=== PATIENT | female | born 1995 | race Caucasian/White ===

== ENCOUNTER 2021-11-26 13:38 | Emergency (ER) | payer MEDICAID ==
[~2021-11-26] VITALS: Ht 172.7 cm; Wt 63.6 kg
[2021-11-26 14:01] VITALS: BP 115/76
[2021-11-26] MEDS ORDERED: CITA20TA28 PO (14:35)
[2021-11-26] MEDS ORDERED: GABA300C PO (14:35)
== END 2021-11-26 14:51 | disposition home or self-care (01) ==
LOC: ER 13:40
DX: F32.9 Major depressive disorder, single episode, unspecified (principal); R56.9 Unspecified convulsions; Z76.0 Encounter for issue of repeat prescription
CPT/HCPCS: 99281

== ENCOUNTER 2021-12-15 17:23 | Emergency (ER) | payer MEDICAID ==
[~2021-12-15] VITALS: Ht 172.7 cm; Wt 63.6 kg
[~2021-12-15 17:23] MED LIST: CITA20TA28 PO; GABA300C PO
[2021-12-15 18:03] VITALS: BP 137/88
== END 2021-12-15 23:42 | disposition left against medical advice (07) ==
LOC: ER 17:23
DX: J02.9 Acute pharyngitis, unspecified (principal); Z53.21 Procedure and treatment not carried out due to patient leaving prior to being seen by health care provider

== ENCOUNTER 2021-12-26 13:21 | Emergency (ER) | payer MEDICAID ==
[~2021-12-26] VITALS: Ht 172.7 cm; Wt 63.6 kg
[2021-12-26 13:23] VITALS: BP 116/79
[2021-12-26] MEDS ORDERED: ALPR-624 PO (15:17)
[2021-12-26] MEDS ORDERED: CITA20TA19 PO (15:17)
[2021-12-26] MEDS ORDERED: GABA300C PO (15:17)
== END 2021-12-26 15:28 | disposition home or self-care (01) ==
LOC: ER 13:21
DX: F41.9 Anxiety disorder, unspecified (principal); G60.9 Hereditary and idiopathic neuropathy, unspecified; L40.50 Arthropathic psoriasis, unspecified; Z76.0 Encounter for issue of repeat prescription; Z79.899 Other long term (current) drug therapy; Z88.8 Allergy status to other drugs, medicaments and biological substances
CPT/HCPCS: 99281